=== PATIENT | female | born 1955 | race Caucasian/White ===

== ENCOUNTER 2024-09-03 01:27 | Emergency (ER) | payer OTHER, MEDICAID ==
[~2024-09-03] VITALS: Ht 157.5 cm; Wt 56.7 kg
[2024-09-03 01:47] LABS: BASOPHILS # (AUTO) 0.1 K/UL (0.0-0.2); BASOPHILS % (AUTO) 0.6 % (0.0-2.0); EOSINOPHILS # (AUTO) 0.9 K/uL (0.0-0.7); HEMATOCRIT 43.4 % (31.2-41.9); HEMOGLOBIN 14.8 g/dL (10.9-14.3); LYMPHOCYTES # (AUTO) 3.2 K/uL (0.8-4.8); LYMPHOCYTES % (AUTO) 29.5 % (20.5-51.5); MEAN CORPUSCULAR HEMOGLOBIN 32.4 uug (24.7-32.8); MEAN CORPUSCULAR HGB CONC 34 g/dL (32.3-35.6); MEAN CORPUSCULAR VOLUME 95.3 fL (75.5-95.3); MONOCYTES # (AUTO) 0.9 K/uL (0.1-1.30); MONOCYTES % (AUTO) 7.9 % (0.0-11.0); NEUTROPHILS # (AUTO) 5.8 K/uL (1.8-8.9); PLATELET COUNT (AUTO) 359 K/uL (179-408); RED BLOOD CELL COUNT(AUTO) 4.56 MIL/uL (3.63-4.92); RED CELL DISTRIBUTION WIDTH 13.2 % (12.3-17.7); WHITE BLOOD COUNT (AUTO) 10.8 K/uL (3.8-11.8)
[2024-09-03] MEDS ORDERED: methylPREDNISolone SOD SUCC 125 MG/2 ML VIAL ONE (01:54)
[2024-09-03 02:00] LABS: ABG BASE EXCESS -4.5 mmol/L (-2.0-3.0); ABG HCO3 21.8 mmol/L (21.0-28.0); ABG PCO2 44.3 mmHg (32.0-45.0); ABG PH 7.309 (7.350-7.450); ABG PO2 70.2 mmHg (83.0-108.0); ABG SITE RIGHT RADIAL; ABG TOTAL HEMOGLOBIN 15.5 G/dL (12.0-16.0); AaDO2 92.6 mmHg; COHb 0.2 % (0.5-1.5); MetHb 0.2 % (0.0-1.5); O2Hb 92.7 % (94.0-98.0)
[2024-09-03] MEDS: methylPREDNISolone SOD SUCC 125 MG/2 ML VIAL IV ONE (02:03)
[2024-09-03 02:06] LABS: ALBUMIN 4.7 g/dL (3.4-5.0); BILIRUBIN,TOTAL 0.3 mg/dL (0.2-1.0); CALCIUM 9.7 mg/dL (8.5-10.1); CREATININE 0.9 mg/dL (0.6-1.3); POTASSIUM 3.1 mmol/L (3.5-5.1); TOTAL PROTEIN, SERUM 8.4 g/dL (6.4-8.2)
[2024-09-03] MEDS ORDERED: POTASSIUM CHLORIDE 20 MEQ TAB.PRT.SR ONE (03:59)
[2024-09-03 04:00] VITALS: O2SAT 98
[2024-09-03] MEDS: ALBUTEROL SULFATE 2.5 MG/3 ML NEBU NEB ONE (04:00)
[2024-09-03] MEDS ORDERED: ALBUTEROL SULFATE 2.5 MG/3 ML NEBU ONE (04:03)
[2024-09-03] MEDS: POTASSIUM CHLORIDE 20 MEQ TAB.PRT.SR PO ONE (04:07)
[2024-09-03 04:15] VITALS: O2SAT 98; O2SAT 99
[2024-09-03] MEDS ORDERED: SWABABLE VALVE TRANSFER SET EA MC ONE (05:07)
[2024-09-03] MEDS ORDERED: IV NORMAL SALINE 250 ML IV ONE (05:07)
[2024-09-03] MEDS ORDERED: IOHEXOL 350 100 ML INFUS..BTL ONE (05:07)
[2024-09-03 06:25] LABS: *BILIRUBIN,URIN NEGATIVE (NEGATIVE); *CLARITY,URINE CLEAR (CLEAR); *COLOR,URINE YELLOW (YELLOW); *KETONES,URINE NEGATIVE (NEGATIVE); *PROTEIN,URINE NEGATIVE (NEGATIVE); *UROBILINOGEN,URINE 0.2 E.U./dl (NORMAL); LEUKOCYTE ESTERASE ,URINE TRACE (NEGATIVE); NITRITE, URINE NEGATIVE (NEGATIVE); UGLUCOSE NEGATIVE (NEGATIVE)
[2024-09-03 06:28] LABS: *BLOOD, URINE TRACE (NEGATIVE)
[2024-09-03] MEDS ORDERED: PRED50TA PO (06:28)
[2024-09-03] MEDS ORDERED: AZIT250T PO (06:28)
[2024-09-03] MEDS ORDERED: ALBU18HF2 INH (06:28)
[2024-09-03 06:32] LABS: BACTERIA,URINE FEW /HPF (NONE SEEN); SQUAMOUS EPITHELIAL CELL,UR FEW /HPF (NONE SEEN); WBC,URINE 0-3 /HPF (0-3)
[2024-09-03 06:33] VITALS: BP 158/98; TEMP 97.6; O2SAT 98
[2024-09-03 06:33] LABS: MUCUS,URINE FEW /LPF (0-FEW)
== END 2024-09-03 06:38 | disposition left against medical advice (07) ==
LOC: ER 01:36
DX: R06.02 Shortness of breath (principal); Z79.52 Long term (current) use of systemic steroids; Z20.822 Contact with and (suspected) exposure to COVID-19
CPT/HCPCS: 99285; 96374; 71275; 87426; 80053; 81001; 83880; 85025; 85379; 84484; 36415; 94640; 82803; 93005; 36600 ×2; J2919; Q9967; A4606; A4663